=== PATIENT | female | born 1950 ===

== ENCOUNTER → 2018-11-23 | Outpatient (CLI) | payer MEDICARE | LOC: BFHH 12:11 | PROVIDERS: ATTEND General Practice | DX: N39.0 Urinary tract infection, site not specified (principal) ==

== ENCOUNTER → 2019-10-07 | Outpatient (CLI) | payer MEDICARE ==
--- NOTE | 2019-10-07 15:58 | CT ---
EXAM DESCRIPTION: Lower Extremity CLINICAL HISTORY: ABNORMAL FINDINGS ON DX IMAGING OF OTHER SPEC BODY STRUCTURES . Possible fracture seen on recent x-ray COMPARISON: None. TECHNIQUE: Noncontrast transaxial CT images of the left hip are obtained with coronal and sagittal reconstructed images. This exam was performed according to our departmental dose-optimization program, which includes automated exposure control, adjustment of the mA and/or kV according to patient size and/or use of iterative reconstruction technique . FINDINGS: Nondisplaced comminuted fracture of the left greater trochanter is seen. Fracture does not appear to involve the femoral neck or lesser trochanter. Mild joint space narrowing and sclerotic changes to the superior lateral acetabulum are seen. At least 6 calcifications are seen in the urinary bladder. The largest measures 1.5 cm. Mild subcutaneous soft tissue fat stranding lateral to the proximal left femur is seen. No soft tissue fluid collection. Moderate diverticuli of the colon. No associated inflammatory changes. Uterus is not seen and presumed surgically absent. IMPRESSION: Nondisplaced comminuted left greater trochanter fracture is seen. Mild osteoarthritic changes of the left hip. Multiple urinary bladder calculi are identified. Electronically signed by: Dwayne Beltre MD 10/07/2019 3:57 PM CDT
== END ==
LOC: CT 09:01
PROVIDERS: ATTEND Nurse Practitioner
DX: S72.115A Nondisplaced fracture of greater trochanter of left femur, initial encounter for closed fracture (principal); M16.12 Unilateral primary osteoarthritis, left hip; S76.002A Unspecified injury of muscle, fascia and tendon of left hip, initial encounter; N21.0 Calculus in bladder